=== PATIENT | male | born 1955 | race Caucasian/White ===

== ENCOUNTER 2023-07-01 15:33 | Inpatient (IN) | payer MEDICARE ==
[2023-07-01] MEDS ORDERED: HYDROmorphone 0.5 MG/0.5 ML Syringe IVPUSH ONE (17:37)
[2023-07-01] MEDS ORDERED: Metoclopramide 10 MG/2 ML SDV IVPUSH ONE (17:37)
[2023-07-01 17:52] LABS: BASE EXCESS ARTERIAL 7.5 (-2-2.0); BICARBONATE,ARTERIAL 34.8 meq/L (22.0-26.0); O2 SATURATION ARTERIAL 93.3 % (96.0-97.0); PCO2 ARTERIAL 62.2 mmHg (35.0-45.0)
[2023-07-01 18:21] LABS: BASOPHILS PERCENT AUTO 0.4 % (0.0-1.0); EOSINOPHILS ABSOLUTE AUTO 0.2 K/mm3 (0.0-0.4); EOSINOPHILS PERCENT AUTO 2.3 % (0.0-6.0); HEMATOCRIT 44.4 % (42.0-52.0); HEMOGLOBIN 14.8 gm/dl (14.0-18.0); IMMATURE GRAN ABSOLUTE AUTO 0.03 K/mm3 (0.00-0.05); IMMATURE GRAN PERCENT AUTO 0.3 % (0.0-0.4); LYMPHOCYTES ABSOLUTE AUTO 0.7 K/mm3 (1.0-4.8); LYMPHOCYTES PERCENT AUTO 7.3 % (24.0-44.0); MEAN CORPUSCULAR HEMOGLOBIN 30.5 pg (28.0-32.0); MEAN CORPUSCULAR HGB CONC 33.3 g/dl (32.0-36.0); MEAN CORPUSCULAR VOLUME 91.5 fl (83.0-99.0); MEAN PLATELET VOLUME 10.5 fl (9.4-12.4); MONOCYTES ABSOLUTE AUTO 0.7 K/mm3 (0.0-0.8); MONOCYTES PERCENT AUTO 7.4 % (0.0-8.0); NEUTROPHILS ABSOLUTE AUTO 8.1 K/mm3 (1.8-7.7); NEUTROPHILS PERCENT AUTO 82.3 % (41.0-71.0); PLATELET COUNT,PLT 232 K/mm3 (150-400); RED BLOOD CELL COUNT 4.85 M/mm3 (4.52-5.90); WHITE BLOOD CELL COUNT,WBC 9.81 K/mm3 (3.9-11.3)
[2023-07-01 18:57] LABS: INR 1.06; PROTHROMBIN TIME 11.3 SECONDS (9.7-12.0)
[2023-07-01 18:58] LABS: PTT,PARTIAL THROMBOPLSTIN TIME 28.6 SECONDS (21.7-31.4)
[2023-07-01 19:12] LABS: A/G RATIO 0.8 (1-2); ALANINE AMINOTRANSFERASE,ALT 9 U/L (16-63); ALKALINE PHOSPHATASE 73 U/L (46-116); ANION GAP 8.3 (5-15); ASPARTATE AMNIOTRANSFERASE,AST 15 U/L (15-37); BILIRUBIN TOTAL 0.9 mg/dL (0.2-1.0); BLOOD UREA NITROGEN,BUN 19 mg/dL (7-18); BUN/CREATININE RATIO 27.1 (14-18); CARBON DIOXIDE,CO2 35 mEq/L (21-32); CHLORIDE,CL 96 mEq/L (98-107); CREATININE 0.7 mg/dL (0.7-1.3); ESTIMATED GFR 102 mL/min (>60); GLUCOSE RANDOM 102 mg/dL (70-99); MAGNESIUM 1.8 mg/dL (1.8-2.4); POTASSIUM,K 3.3 mEq/L (3.5-5.1); PROTEIN TOTAL,TP 6.8 g/dl (6.4-8.2); SODIUM,NA 136 mEq/L (136-145)
[2023-07-01 19:40] LABS: URIC ACID 6.9 mg/dL (3.5-7.2)
[2023-07-01] MEDS ORDERED: Iopamidol 755 Mg/ML 100 ML Bottle IVPUSH ONE (20:04)
[2023-07-01] MEDS: Sodium Chloride 0.9% 100 ML IV SCH ×2 (20:38→20:41)
[2023-07-01] MEDS ORDERED: Levofloxacin/Dextrose 5%-Water 500 MG in Premix Bag 1 BAG IV ONE (21:31)
[2023-07-01] MEDS ORDERED: Acetaminophen 325 MG Tab PO PRN (22:14)
[2023-07-01] MEDS ORDERED: Albuterol/Ipratropium 3.0-0.5 MG/3 ML Neb Soln NEB PRN (22:14)
[2023-07-01] MEDS ORDERED: Enoxaparin 40 MG/0.4 ML Syringe SUBCUT SCH (22:15)
[2023-07-01] MEDS: Enoxaparin 40 MG/0.4 ML Syringe SUBCUT SCH (23:03)
[2023-07-02 00:35] LABS: APPEARANCE,URINE SLT CLOUDY (Clear); BILIRUBIN,URINE NEGATIVE (Negative); COLOR,URINE YELLOW (Yellow); GLUCOSE,URINE NEGATIVE (Negative); KETONES,URINE TRACE (Negative); LEUKOCYTE ESTERASE,URINE 1+ (Negative); NITRITE,URINE NEGATIVE (Negative); OCCULT BLOOD,URINE TRACE-INTACT (Negative); PROTEIN,URINE NEGATIVE (Negative)
[2023-07-02 01:26] LABS: BACTERIA,URINE FEW /hpf (FEW); EPITHELIAL CELLS,URINE 0-5 /hpf (0-5); HYALINE CASTS,URINE 0-5 /lpf (0-5); MUCUS,URINE NOT SEEN /hpf (FEW); RBC,URINE 0-5 /hpf (0-5); WBC CLUMPS,URINE FEW /hpf (NOT SEEN); WBC,URINE 40-50 /hpf (0-5)
[2023-07-02] MEDS ORDERED: Ondansetron 4 MG/2 ML SDV IV PRN (07:31)
[2023-07-02] MEDS ORDERED: Docusate Sodium 100 MG Cap PO PRN (07:31)
[2023-07-02] MEDS ORDERED: Albuterol 0.083% 2.5 MG/3 ML Neb Soln NEB PRN (07:31)
[2023-07-02] MEDS ORDERED: Bumetanide 1 MG Tab PO SCH (09:00)
[2023-07-02] MEDS ORDERED: Polyethylene Glycol 3350 Powder 17 GM Packet PO SCH (09:00)
[2023-07-02] MEDS ORDERED: Potassium Chloride 20 MEQ Tab.ER PO ONE (10:00)
[2023-07-02] MEDS ORDERED: oxyCODONE 5 MG Tab PO PRN (10:20)
[2023-07-02] MEDS ORDERED: Lidocaine 4% 1 each Patch TOP SCH (10:30)
[2023-07-02] MEDS: cefTRIAXone 2 GM in Sodium Chloride 0.9% 100 ML IV SCH (11:26)
[2023-07-02] MEDS: Acetaminophen 325 MG Tab PO SCH ×2 (11:30→17:59)
[2023-07-02] MEDS ORDERED: Polyethylene Glycol 3350 Powder 17 GM Packet PO PRN (14:28)
[2023-07-02] MEDS: oxyCODONE 5 MG Tab PO SCH ×2 (14:28→21:08)
[2023-07-02] MEDS: Lidocaine 4% 1 each Patch TOP SCH (17:11)
[2023-07-02] MEDS: Aspirin 81 MG Tab.EC PO SCH (17:56)
[2023-07-02] MEDS: Sertraline 50 MG Tab PO SCH ×2 (21:06→21:10)
[2023-07-02] MEDS: Enoxaparin 40 MG/0.4 ML Syringe SUBCUT SCH (21:14)
[2023-07-03] MEDS: Acetaminophen 325 MG Tab PO SCH ×3 (03:24→18:51)
[2023-07-03 06:40] LABS: ANION GAP 10.6 (5-15); CREATININE 0.5 mg/dL (0.7-1.3); POTASSIUM,K 3.6 mEq/L (3.5-5.1)
[2023-07-03 06:41] LABS: CALCIUM 8.9 mg/dL (8.5-10.1); EST CRCL DRUG DOSING (CG) 168.97 mL/min; MAGNESIUM 1.8 mg/dL (1.8-2.4)
[2023-07-03] MEDS: Bumetanide 1 MG Tab PO SCH (08:31)
[2023-07-03] MEDS: oxyCODONE 5 MG Tab PO SCH ×2 (08:31→21:39)
[2023-07-03] MEDS: Lidocaine 4% 1 each Patch TOP SCH (08:32)
[2023-07-03] MEDS: Docusate Sodium 100 MG Cap PO SCH (08:32)
[2023-07-03] MEDS ORDERED: Magnesium Sulfate/Water 2 GM in Premix Bag 1 BAG IV ONE (11:24)
[2023-07-03] MEDS: cefTRIAXone 2 GM in Sodium Chloride 0.9% 100 ML IV SCH (11:50)
[2023-07-03] MEDS: Aspirin 81 MG Tab.EC PO SCH (18:51)
[2023-07-03] MEDS: Enoxaparin 40 MG/0.4 ML Syringe SUBCUT SCH (21:40)
[2023-07-04] MEDS: Acetaminophen 325 MG Tab PO SCH ×3 (04:00→18:45)
[2023-07-04] MEDS: Docusate Sodium 100 MG Cap PO SCH (08:52)
[2023-07-04] MEDS: oxyCODONE 5 MG Tab PO SCH ×2 (08:52→20:41)
[2023-07-04] MEDS: Bumetanide 1 MG Tab PO SCH (08:52)
[2023-07-04] MEDS: Lidocaine 4% 1 each Patch TOP SCH (08:53)
[2023-07-04] MEDS: Aspirin 81 MG Tab.EC PO SCH (18:45)
[2023-07-04] MEDS: Enoxaparin 40 MG/0.4 ML Syringe SUBCUT SCH ×2 (20:42→22:34)
[2023-07-05] MEDS: Acetaminophen 325 MG Tab PO SCH ×3 (03:23→18:01)
[2023-07-05] MEDS: Lidocaine 4% 1 each Patch TOP SCH (08:50)
[2023-07-05] MEDS: Bumetanide 1 MG Tab PO SCH (08:51)
[2023-07-05] MEDS: Docusate Sodium 100 MG Cap PO SCH (08:51)
[2023-07-05] MEDS: oxyCODONE 5 MG Tab PO SCH ×2 (08:51→20:38)
[2023-07-05] MEDS: Aspirin 81 MG Tab.EC PO SCH (18:01)
[2023-07-05] MEDS: Enoxaparin 40 MG/0.4 ML Syringe SUBCUT SCH ×2 (20:39→21:18)
[2023-07-06] MEDS: Acetaminophen 325 MG Tab PO SCH ×2 (02:30→10:04)
[2023-07-06] MEDS: Bumetanide 1 MG Tab PO SCH (09:13)
[2023-07-06] MEDS: oxyCODONE 5 MG Tab PO SCH (09:15)
[2023-07-06] MEDS: Docusate Sodium 100 MG Cap PO SCH (09:16)
[2023-07-06] MEDS: Lidocaine 4% 1 each Patch TOP SCH (09:20)
[2023-07-06 13:07] VITALS: BP 111/59; PULSE 89
== END 2023-07-06 13:20 | DRG 192 ==
LOC: JD.ED 15:33 → JD.MS 21:27
PROVIDERS: ADMIT Internal Medicine; ATTEND Internal Medicine
DX: J96.91 Respiratory failure, unspecified with hypoxia (principal); J96.92 Respiratory failure, unspecified with hypercapnia; I50.812 Chronic right heart failure; J44.9 Chronic obstructive pulmonary disease, unspecified; J43.1 Panlobular emphysema; M25.562 Pain in left knee; M25.561 Pain in right knee; M54.50 Low back pain, unspecified; Z74.1 Need for assistance with personal care; Z74.09 Other reduced mobility; E03.9 Hypothyroidism, unspecified; E87.6 Hypokalemia; R09.02 Hypoxemia; E88.09 Other disorders of plasma-protein metabolism, not elsewhere classified; I50.9 Heart failure, unspecified; F32.89 Other specified depressive episodes; M17.0 Bilateral primary osteoarthritis of knee; Z66 Do not resuscitate; M16.0 Bilateral primary osteoarthritis of hip; I25.10 Atherosclerotic heart disease of native coronary artery without angina pectoris; Z87.891 Personal history of nicotine dependence; Z79.82 Long term (current) use of aspirin; Z79.899 Other long term (current) drug therapy; Z88.8 Allergy status to other drugs, medicaments and biological substances
CPT/HCPCS: 36415; 36600; 71045; 71045-26; 71275; 71275-26; 72170; 72170-26; 735602650; 73560-50; 80048; 80053; 81001; 82803; 83735; 83880; 84439; 84443; 84481; 84484; 84550; 85025; 85379; 85610; 85652; 85730; 86140; 87086; 93005; 93010; 94760; 94761; 96360; 97161-GP; 97530-GP; 99285; 99285-25; A9270-GY; J0696; J1650; J1956; J3475; J3490; Q9967; U0002